=== PATIENT | female | born 1975 | race Caucasian/White ===

== ENCOUNTER → 2021-09-13 | Outpatient (REF) ==
--- NOTE | 2021-09-13 16:25 | REP ---
INDICATION: PAIN COMPARISON: None. TECHNIQUE: AP, lateral, bilateral oblique views left hand. FINDINGS: Generalized age-related changes include subtle sclerosis and joint space narrowing involving the interphalangeal joints. No further overt significant arthritic changes are appreciated. No evidence for acute or healed injury. No subcutaneous emphysema or foreign body. IMPRESSION: Mild generalized age-related changes. <Electronically signed by Ryan Vallejo > 09/13/21 [id number]
--- NOTE | 2021-09-13 16:30 | REP ---
INDICATION: PAIN COMPARISON: None. TECHNIQUE: AP, lateral, coned-down views of the lumbar spine. FINDINGS: Lateral view demonstrates straightening/mild reversal of normal lordosis. No evidence for acute fracture/compression injury or subluxation. Minimal generalized multilevel age-related changes include subtle increased sclerosis to the endplates with subtle marginal spurring. IMPRESSION: 1. No acute fracture / compression injury or subluxation. 2. Mild generalized multilevel age-related changes. <Electronically signed by Ryan Vallejo > 09/13/21 [id number]
== END ==
LOC: M PLARAD 14:36 → M PLAIMG 14:36
PROVIDERS: ATTEND Internal Medicine
DX: M54.50 Low back pain, unspecified (principal); M79.642 Pain in left hand